=== PATIENT | female | born 1960 | race American Indian/Alaskan Native ===

== ENCOUNTER 2019-11-10 10:17 | Emergency (ER) | payer OTHER ==
[2019-11-10 10:38] VITALS: BP 132/87
--- NOTE | 2019-11-10 15:17 | Emergency Department Report ---
ED General Adult HPI - General Chief complaint: Abdominal Pain Stated complaint: FLU LIKE SYM/BODY ACHES Time Seen by Provider: 11/10/19 14:04 Source: patient Mode of arrival: Ambulatory Limitations: No Limitations - History of Present Illness Initial comments: This is a 59-year-old -Spanish female who presents to the emergency room with sore throat, myalgia, fever, chills for 2 days. She states she is using Vidhi-Bamberg plus with minimal improvement of symptoms. Patient states symptoms initially started on New Year's Saige and progressed over the past 2 days. Onset/Timin -: days(s) Quality: aching Consistency: intermittent Improves with: none Worsens with: none Associated Symptoms: cough, fever/chills, headaches. denies: confusion, chest pain, diaphoresis, loss of appetite, malaise, nausea/vomiting, rash, seizure, shortness of breath, syncope, weakness Treatments Prior to Arrival: NSAID - Related Data Previous Rx's Medication Instructions Recorded Last Taken Type Benzocaine/Menthol [Cepacol Sore 1 each MM Q2H PRN #20 lozenge 11/10/19 Unknown Rx Throat Lozenge] methylPREDNISolone [Medrol 4MG 4 mg PO DAILY #1 tab.ds.pk 11/10/19 Unknown Rx DOSEPAK (21 tabs)] ED Review of Systems ROS: Stated complaint: FLU LIKE SYM/BODY ACHES Other details as noted in HPI Constitutional: chills, fever ENT: throat pain, congestion. denies: ear pain Respiratory: cough. denies: shortness of breath, wheezing Cardiovascular: denies: chest pain, palpitations Gastrointestinal: denies: abdominal pain, nausea, diarrhea Musculoskeletal: denies: back pain, joint swelling, arthralgia Skin: denies: rash, lesions Neurological: denies: headache, weakness, paresthesias Psychiatric: denies: anxiety, depression ED Past Medical Hx - Medications Home Medications: Home Medications Medication Instructions Recorded Confirmed Last Taken Type Benzocaine/Menthol [Cepacol Sore 1 each MM Q2H PRN #20 lozenge 11/10/19 Unknown Rx Throat Lozenge] methylPREDNISolone [Medrol 4MG 4 mg PO DAILY #1 tab.ds.pk 11/10/19 Unknown Rx DOSEPAK (21 tabs)] ED Physical Exam - General Limitations: No Limitations General appearance: alert, in no apparent distress - ENT ENT exam: Present: mucous membranes moist, TM's normal bilaterally, normal external ear exam, other (turbinates congested with clear discharge). Absent: normal orophraynx (erythematous posterior pharynx, uvula midline no exudate) - Respiratory Respiratory exam: Present: normal lung sounds bilaterally. Absent: respiratory distress - Cardiovascular Cardiovascular Exam: Present: regular rate, normal rhythm. Absent: systolic murmur, diastolic murmur, rubs, gallop - GI/Abdominal GI/Abdominal exam: Present: soft, normal bowel sounds. Absent: distended, tenderness, guarding, rebound, rigid - Neurological Exam Neurological exam: Present: alert, oriented X3 - Psychiatric Psychiatric exam: Present: normal affect, normal mood - Skin Skin exam: Present: warm, dry, intact, normal color. Absent: rash ED Course Vital Signs 11/10/19 10:35 Temperature 98.3 F Pulse Rate 78 Respiratory 18 Rate Blood Pressure 132/87 O2 Sat by Pulse 99 Oximetry ED Medical Decision Making - Medical Decision Making Patient examined by me and stable. No distress noted. Denies shortness of breath, cough, weakness, nausea, vomiting, or diarrhea. Centor score for strep 1 point. At this time labs or radiograph imaging is not indicated. Patient will be treated for acute viral pharyngitis. Patient reports history of constipation and followed by Dharmesh PACK. States symptoms are what she usually have and resolved while here after taking prescribed medication. Start medrol dosepak and Cepacol. Discharged home stable. Follow up with Primary Care Provider edilson Barroso in 2-3 days. Critical care attestation.: If time is entered above; I have spent that time in minutes in the direct care of this critically ill patient, excluding procedure time. ED Disposition Clinical Impression: Sore throat (viral), Acute viral pharyngitis Disposition: - TO HOME OR SELFCARE Is pt being admited?: No Condition: Stable Instructions: Pharyngitis (ED) Additional Instructions: Expect symptoms to improve within 3 or 4 days. There is no need for bed rest or isolation. Use Tylenol or ibuprofen for symptoms of sore throat, headache, and fever. Follow up with Primary Care Provider in 48-72 hours. Prescriptions: Benzocaine/Menthol [Cepacol Sore Throat Lozenge] 1 each MM Q2H PRN #20 lozenge PRN Reason: Sore Throat methylPREDNISolone [Medrol 4MG DOSEPAK (21 tabs)] 4 mg PO DAILY #1 tab.ds.pk Referrals: [facility] [Other] - 3-5 Days Time of Disposition: 16:17
== END 2019-11-10 16:32 | disposition left against medical advice (07) ==
LOC: ED 10:17
DX: J02.8 Acute pharyngitis due to other specified organisms (principal); B97.89 Other viral agents as the cause of diseases classified elsewhere
CPT/HCPCS: 99281

== ENCOUNTER 2020-09-15 13:32 | Observation (INO) | payer OTHER ==
--- NOTE | 2020-09-15 13:53 | Event Note ---
ED Screening Note Date of service: 09/15/20 Time: 13:53 ED Screening Note: She complains of constipation x2 weeks Denies history of abdominal surgeries States vomiting for 1 week Admits to coffee-ground emesis Recently placed on antibiotics for UTI per patient This initial assessment/diagnostic orders/clinical plan/treatment(s) is/are subject to change based on patients health status, clinical progression and re- assessment by fellow clinical providers in the ED. Further treatment and workup at subsequent clinical providers discretion. Patient/guardian urged not to elope from the ED as their condition may be serious if not clinically assessed and managed. Initial orders include: Labs X-ray abdomen
--- NOTE | 2020-09-15 14:32 | XRay Report ---
ABDOMEN 2 VIEW(S) INDICATION / CLINICAL INFORMATION: Constipation. COMPARISON: None available. FINDINGS: TUBES / LINES: None. BOWEL GAS PATTERN/EXTRALUMINAL GAS: No significant abnormality. No pneumatosis or secondary signs of free air. ADDITIONAL FINDINGS: Moderate chronic osteitis pubis noted. IMPRESSION: 1. No significant abnormality. Signer Name: Francisco Chavez MD Signed: 09/15/2020 2:28 PM Workstation Name: [id number]
[2020-09-15 15:20] LABS: INR 0.95 (0.87-1.13)
[2020-09-15 15:21] LABS: Partial Thromboplastin Time 27.5 Sec. (24.2-36.6)
[2020-09-15 15:23] LABS: Hematocrit 41.7 % (30.3-42.9); Hemoglobin 13.7 gm/dl (10.1-14.3); Mean Corpuscular HGB Conc 33 % (30-34); Mean Corpuscular Volume 97 fl (79-97); Platelet Count 162 K/mm3 (140-440); Red Cell Distribution Width 13.5 % (13.2-15.2)
[2020-09-15 15:28] LABS: Alanine Aminotransferase 22 units/L (7-56); Albumin 4.5 g/dL (3.9-5); BUN/Creatinine Ratio 14; Blood Urea Nitrogen 11 mg/dL (7-17); Calcium 9.1 mg/dL (8.4-10.2); Hemolysis Index 9
[2020-09-15] MEDS ORDERED: ONDANSETRON 4 MG/2 ML INJ IV ONE (22:57)
--- NOTE | 2020-09-15 22:58 | Cat Scan Report ---
CT ABDOMEN AND PELVIS WITHOUT CONTRAST INDICATION / CLINICAL INFORMATION: abdominal pain/constipation/. TECHNIQUE: Axial CT images were obtained through the abdomen and pelvis without IV contrast. All CT scans at [facility] location are performed using CT dose reduction for ALARA by means of automated exposure control. COMPARISON: 05/17/2020 CT abdomen pelvis FINDINGS: LOWER CHEST: No significant abnormality. HEPATOBILIARY: No significant abnormality. PANCREAS: No significant abnormality. SPLEEN: No significant abnormality. ADRENALS: No significant abnormality. GENITOURINARY: No significant abnormality. GASTROINTESTINAL/MESENTERY: Tiny hiatal hernia. Small caliber tubular structure courses posterior fro m the cecum and possibly represents the appendix. This finding appears larger when compared to examin ation 05/17/2020 and there is minimal fat stranding with normal-sized lymph nodes in the right lower q uadrant. No definite bowel obstruction or inflammation. No free air or significant free fluid. RETROPERITONEUM: No significant adenopathy. REPRODUCTIVE ORGANS: No significant abnormality. VASCULAR: No significant abnormality. SKELETAL SYSTEM: No significant abnormality. ADDITIONAL FINDINGS: No significant abnormality. IMPRESSION: 1. Tubular structure in the right lower quadrant which may represent the appendix. Finding appears sl ightly larger and more dilated when compared to 05/17/2020 examination. Additionally, there is minimal fat haziness and few upper limits normal size lymph nodes in the right lower quadrant. Findings can be seen in setting of early uncomplicated acute appendicitis. Recommend clinical correlation. Signer Name: Chava Summers MD Signed: 09/15/2020 10:54 PM Workstation Name: [id number]
--- NOTE | 2020-09-15 23:22 | Emergency Department Report ---
ED General Adult HPI - General Chief complaint: Abdominal Pain Stated complaint: VOMITING/HARD STOOL Time Seen by Provider: 09/15/20 13:52 Source: patient Mode of arrival: Ambulatory Limitations: No Limitations - History of Present Illness Initial comments: Patient presents to emergency department the chief complaint of constipation x1 week. Patient states she took castor oil this morning and while in the ED she had a bowel movement. Patient has a history of IBS. Patient states she has had difficulty with her bowel since 2014 if she wants the issue resolved tonight. Patient denies any chest pain, shortness breath, headache. Patient complains of right lower quadrant abdominal pain. -: Gradual, year(s) Location: abdomen Severity scale (0 -10): 4 Quality: aching Consistency: constant Improves with: none Worsens with: none Associated Symptoms: denies other symptoms Treatments Prior to Arrival: none - Related Data Previous Rx's Medication Instructions Recorded Last Taken Type Benzocaine/Menthol [Cepacol Sore 1 each MM Q2H PRN #20 lozenge 11/10/19 Unknown Rx Throat Lozenge] methylPREDNISolone [Medrol 4MG 4 mg PO DAILY #1 tab.ds.pk 11/10/19 Unknown Rx DOSEPAK (21 tabs)] Azithromycin [Zithromax Z-JUAN] 0 mg PO DAILY #1 package 05/17/20 Unknown Rx Promethazine [Phenergan] 25 mg PO Q6HR PRN #21 tab 05/17/20 Unknown Rx Allergies Allergy/AdvReac Type Severity Reaction Status Date / Time ibuprofen [From Motrin] Allergy Unknown Verified 05/17/20 09:24 Penicillins Allergy Unknown Verified 05/17/20 09:24 ED Review of Systems ROS: Stated complaint: VOMITING/HARD STOOL Other details as noted in HPI Constitutional: denies: chills, fever Eyes: denies: eye pain, eye discharge, vision change ENT: denies: ear pain, throat pain Respiratory: denies: cough, shortness of breath, wheezing Cardiovascular: denies: chest pain, palpitations Endocrine: no symptoms reported Gastrointestinal: abdominal pain, constipation. denies: nausea, diarrhea Genitourinary: denies: urgency, dysuria, discharge Musculoskeletal: denies: back pain, joint swelling, arthralgia Skin: denies: rash, lesions Neurological: denies: headache, weakness, paresthesias Psychiatric: denies: anxiety, depression Hematological/Lymphatic: denies: easy bleeding, easy bruising ED Past Medical Hx - Past Medical History Previous Medical History?: Yes Hx GERD: Yes Additional medical history: chronic constipation - Surgical History Past Surgical History?: Yes - Social History Smoking Status: Never Smoker - Medications Home Medications: Home Medications Medication Instructions Recorded Confirmed Last Taken Type Benzocaine/Menthol [Cepacol Sore 1 each MM Q2H PRN #20 lozenge 11/10/19 Unknown Rx Throat Lozenge] methylPREDNISolone [Medrol 4MG 4 mg PO DAILY #1 tab.ds.pk 11/10/19 Unknown Rx DOSEPAK (21 tabs)] Azithromycin [Zithromax Z-JUAN] 0 mg PO DAILY #1 package 05/17/20 Unknown Rx Promethazine [Phenergan] 25 mg PO Q6HR PRN #21 tab 05/17/20 Unknown Rx ED Physical Exam - General Limitations: No Limitations General appearance: alert, in no apparent distress - Head Head exam: Present: atraumatic, normocephalic - Eye Eye exam: Present: normal appearance, PERRL, EOMI - ENT ENT exam: Present: mucous membranes moist - Neck Neck exam: Present: normal inspection - Respiratory Respiratory exam: Present: normal lung sounds bilaterally. Absent: respiratory distress - Cardiovascular Cardiovascular Exam: Present: regular rate, normal rhythm. Absent: systolic murmur, diastolic murmur, rubs, gallop - GI/Abdominal GI/Abdominal exam: Present: soft, tenderness (Patient is tenderness palpation right and left lower quadrant), normal bowel sounds. Absent: distended - Extremities Exam Extremities exam: Present: normal inspection - Back Exam Back exam: Present: normal inspection - Neurological Exam Neurological exam: Present: alert, oriented X3, CN II-XII intact. Absent: motor sensory deficit - Psychiatric Psychiatric exam: Present: normal affect, normal mood - Skin Skin exam: Present: warm, dry, intact, normal color. Absent: rash ED Course Vital Signs 09/15/20 13:50 Temperature 97.9 F Pulse Rate 88 Respiratory 18 Rate Blood Pressure 138/87 [Right] O2 Sat by Pulse 97 Oximetry ED Medical Decision Making - Lab Data Result diagrams: 09/15/20 14:44 09/15/20 14:44 Lab Results 11/12/20 11/12/20 11/12/20 Range/Units 14:44 14:44 14:44 WBC 7.7 (4.5-11.0) K/mm3 RBC 4.30 (3.65-5.03) M/mm3 Hgb 13.7 (10.1-14.3) gm/dl Hct 41.7 (30.3-42.9) % MCV 97 (79-97) fl MCH 32 (28-32) pg MCHC 33 (30-34) % RDW 13.5 (13.2-15.2) % Plt Count 162 (140-440) K/mm3 Lymph % (Auto) [employer] [place] Morgan % (Auto) [employer] Eos % (Auto) [employer] Baso % (Auto) [employer] Lymph # (Auto) [employer] [place] Morgan # (Auto) [employer] Eos # (Auto) [employer] Baso # (Auto) [employer] Seg Neutrophils % [employer] Seg Neutrophils # [employer] PT 12.9 (12.2-14.9) Sec. INR 0.95 (0.87-1.13) APTT 27.5 (24.2-36.6) Sec. Sodium 138 (137-145) mmol/L Potassium 3.8 (3.6-5.0) mmol/L Chloride 103.3 (98-107) mmol/L Carbon Dioxide 23 (22-30) mmol/L Anion Gap 16 mmol/L BUN 11 (7-17) mg/dL Creatinine 0.8 (0.6-1.2) mg/dL Estimated GFR > 60 ml/min BUN/Creatinine Ratio 14 % Glucose 93 (65-100) mg/dL Calcium 9.1 (8.4-10.2) mg/dL Total Bilirubin 0.30 (0.1-1.2) mg/dL AST 19 (5-40) units/L ALT 22 (7-56) units/L Alkaline Phosphatase 59 (35-129) units/L Total Protein 7.6 (6.3-8.2) g/dL Albumin 4.5 (3.9-5) g/dL Albumin/Globulin Ratio 1.5 % - Radiology Data Radiology results: report reviewed - Medical Decision Making Discussed results with Dr. Bearden who agreed to see the patient on consult Discussed results with patient IV Flagyl and Levaquin were given instead of Zosyn due to the patient's allergy to penicillin which is hives and swelling of the airway Critical care attestation.: If time is entered above; I have spent that time in minutes in the direct care of this critically ill patient, excluding procedure time. ED Disposition Clinical Impression: Appendicitis Disposition: DC-[id number] OP ADMIT IP TO THIS HOSP Is pt being admited?: Yes Does the pt Need Aspirin: No Condition: Fair Instructions: Abdominal Pain (ED) Referrals: [facility] MD PRANAV [Primary Care Provider] - 3-5 Days
[2020-09-15] MEDS ORDERED: metroNIDAZOLE/NS 500 MG/100 ML 500 MG/100 ML BAG IV ONE (23:41)
[2020-09-16] MEDS: MORPHINE 4 MG/1 ML INJ IV ONE ×2 (00:24→00:43)
[2020-09-16] MEDS ORDERED: ONDANSETRON 4 MG/2 ML INJ IV PRN (00:48)
[2020-09-16] MEDS ORDERED: ACETAMINOPHEN 325 MG TAB PO PRN (00:48)
[2020-09-16 00:53] LABS: Bilirubin,Urine NEG (Negative); Blood,Urine NEG (Negative); Color,Urine Yellow (Yellow); Mucus,Urine FEW /HPF; Protein,Urine <15 mg/dL mg/dL (Negative); Urobilinogen,Urine < 2.0 mg/dL (<2.0)
--- NOTE | 2020-09-16 00:56 | History and Physical Report ---
History of Present Illness Date of examination: 09/16/20 Date of admission: 09/16/2020 Chief complaint: Abdominal pain Constipation History of present illness: 60 year old female with history of IBS seen in the ER complaining of constipation and abdominal pain. Abdominal pain is more in the lower abdomen. She denies hematuria or dysuria. No fever,no chills. No chest pain or shortness of breath. No diarrhea, no bright red blood per rectum. She indicates she has been having problems with constipation over the past few years. She has been constipated for the past few days and last taking castor oil for relief. She also indicates that she saw her primary care physician at [facility] few days ago and she was prescribed some antibiotics because she had complained of lower abdominal pain. Her primary care physician had suspected UTI even though urinalysis was not done. CT abdomen today shows findings concerning for appendicitis. General Surgeon - Dr. Cho was consulted by the ER physician. IV fluid and empiric antibiotics has been initiated. Past History Past Medical History: GERD, other (Chronic Constipation) Past Surgical History: No surgical history Social history: no significant social history Family history: no significant family history Medications and Allergies Allergies Allergy/AdvReac Type Severity Reaction Status Date / Time ibuprofen [From Motrin] Allergy Unknown Verified 05/17/20 09:24 Penicillins Allergy Unknown Verified 05/17/20 09:24 Home Medications Medication Instructions Recorded Confirmed Last Taken Type Benzocaine/Menthol [Cepacol Sore 1 each MM Q2H PRN #20 lozenge 11/10/19 Unknown Rx Throat Lozenge] methylPREDNISolone [Medrol 4MG 4 mg PO DAILY #1 tab.ds.pk 11/10/19 Unknown Rx DOSEPAK (21 tabs)] Azithromycin [Zithromax Z-JUAN] 0 mg PO DAILY #1 package 05/17/20 Unknown Rx Promethazine [Phenergan] 25 mg PO Q6HR PRN #21 tab 05/17/20 Unknown Rx Active Meds: Active Medications Acetaminophen (Tylenol) 650 mg PO Q4H PRN PRN Reason: Pain MILD(1-3)/Fever >100.5/CABRERA Levofloxacin/Dextrose (Levaquin 750mg/150ml) 750 mg in 150 mls @ 100 mls/hr IV ONCE ONE; Protocol Stop: 09/16/20 01:09 Last Admin: 09/16/20 00:24 Dose: 100 mls/hr Documented by: Sodium Chloride (Nacl 0.9% 1000 Ml) 1,000 mls @ 125 mls/hr IV DIRECT VIKAS Levofloxacin/Dextrose (Levaquin 750mg/150ml) 750 mg in 150 mls @ 100 mls/hr IV Q24HR VIKAS; Protocol Metronidazole (Flagyl 500 Mg/100 Ml) 500 mg in 100 mls @ 100 mls/hr IV Q8HR VIKAS; Protocol Magnesium Hydroxide (Milk Of Magnesia) 30 ml PO Q4H PRN PRN Reason: Constipation Morphine Sulfate (Morphine) 2 mg IV Q4H PRN PRN Reason: Pain, Moderate (4-6) Ondansetron HCl (Zofran) 4 mg IV Q8H PRN PRN Reason: Nausea And Vomiting Sodium Chloride (Sodium Chloride Flush Syringe 10 Ml) 10 ml IV BID VIKAS Sodium Chloride (Sodium Chloride Flush Syringe 10 Ml) 10 ml IV PRN PRN PRN Reason: LINE FLUSH Review of Systems Constitutional: no fever, no chills Ears, nose, mouth and throat: no nasal congestion, no sore throat Cardiovascular: no chest pain, no palpitations Respiratory: no cough, no shortness of breath Gastrointestinal: abdominal pain, no nausea, no vomiting, no diarrhea Genitourinary Female: no pelvic pain, no flank pain, no dysuria, no hematuria Musculoskeletal: no neck pain, no low back pain Integumentary: no rash, no pruritis Neurological: no headaches, no confusion Psychiatric: no anxiety, no depression Exam - Constitutional Vitals: Temp Pulse Resp BP Pulse Ox 97.9 F 88 18 138/87 97 09/15/20 13:50 09/15/20 13:50 09/15/20 13:50 09/15/20 13:50 09/15/20 13:50 General appearance: Present: no acute distress, well-nourished - EENT Eyes: Present: PERRL, EOM intact. Absent: scleral icterus ENT: hearing intact, clear oral mucosa, dentition normal - Neck Neck: Present: supple, normal ROM - Respiratory Respiratory effort: normal Respiratory: bilateral: CTA - Cardiovascular Rhythm: regular Heart Sounds: Present: S1 & S2. Absent: gallop, systolic murmur, diastolic murmur, rub - Extremities Extremities: no ischemia, pulses intact, pulses symmetrical, No edema, Full ROM Peripheral Pulses: within normal limits - Abdominal General gastrointestinal: Present: soft, tender (In lower quadrants), non- distended, normal bowel sounds - Integumentary Integumentary: Present: clear, warm, dry. Absent: rash - Musculoskeletal Musculoskeletal: strength equal bilaterally - Psychiatric Psychiatric: appropriate mood/affect, intact judgment & insight, memory intact, cooperative - Neurologic Neurologic: CNII-XII intact, no focal deficits, moves all extremities Results - Labs CBC & Chem 7: 09/15/20 14:44 09/15/20 14:44 Assessment and Plan - Patient Problems (1) Appendicitis Current Visit: Yes Status: Acute Plan to address problem: He has been placed on IV fluid and empiric IV antibiotics. General surgeon has been consulted for evaluation. (2) DVT prophylaxis Current Visit: Yes Status: Acute Plan to address problem: Patient placed on sequential compression device. (3) Full code status Current Visit: Yes Status: Acute
[2020-09-16] MEDS ORDERED: SODIUM CHLORIDE 0.9% 1000 ML 1,000 ML IV SCH (01:00)
--- NOTE | 2020-09-16 05:08 | Consultation ---
History of Present Illness Consult date: 09/16/20 Reason for consult: abdominal pain Chief complaint: abd pain - History of present illness History of present illness: this is a 60 year old female who presents with a one week hx of severe constipation complaining of increased abd pain, she has a hx of chronic constipation and IBS, she presented to the ER with a normal WBC, stable vitals, no fever, and a CT of the abd pelvis demonstrating question of enlarged appendix (no dimensions given), no mention of appendicolithe, minimal fat stranding, no mention of constipation, no obstruction. Past History Past Medical History: GERD, other (Chronic Constipation) Past Surgical History: No surgical history Social history: no significant social history Family history: no significant family history Medications and Allergies Allergies Allergy/AdvReac Type Severity Reaction Status Date / Time ibuprofen [From Motrin] Allergy Unknown Verified 05/17/20 09:24 Penicillins Allergy Unknown Verified 05/17/20 09:24 Home Medications Medication Instructions Recorded Confirmed Last Taken Type Benzocaine/Menthol [Cepacol Sore 1 each MM Q2H PRN #20 lozenge 11/10/19 Unknown Rx Throat Lozenge] methylPREDNISolone [Medrol 4MG 4 mg PO DAILY #1 tab.ds.pk 11/10/19 Unknown Rx DOSEPAK (21 tabs)] Azithromycin [Zithromax Z-JUAN] 0 mg PO DAILY #1 package 05/17/20 Unknown Rx Promethazine [Phenergan] 25 mg PO Q6HR PRN #21 tab 05/17/20 Unknown Rx Active Meds: Active Medications Acetaminophen (Tylenol) 650 mg PO Q4H PRN PRN Reason: Pain MILD(1-3)/Fever >100.5/CABRERA Sodium Chloride (Nacl 0.9% 1000 Ml) 1,000 mls @ 125 mls/hr IV DIRECT VIKAS Levofloxacin/Dextrose (Levaquin 750mg/150ml) 750 mg in 150 mls @ 100 mls/hr IV Q24HR VIKAS; Protocol Metronidazole (Flagyl 500 Mg/100 Ml) 500 mg in 100 mls @ 100 mls/hr IV Q8HR VIKAS; Protocol Magnesium Hydroxide (Milk Of Magnesia) 30 ml PO Q4H PRN PRN Reason: Constipation Morphine Sulfate (Morphine) 2 mg IV Q4H PRN PRN Reason: Pain, Moderate (4-6) Ondansetron HCl (Zofran) 4 mg IV Q8H PRN PRN Reason: Nausea And Vomiting Sodium Chloride (Sodium Chloride Flush Syringe 10 Ml) 10 ml IV BID VIKAS Sodium Chloride (Sodium Chloride Flush Syringe 10 Ml) 10 ml IV PRN PRN PRN Reason: LINE FLUSH Exam Vital Signs Temp Pulse Resp BP Pulse Ox 97.9 F 88 18 138/87 97 09/15/20 13:50 09/15/20 13:50 09/15/20 13:50 09/15/20 13:50 09/15/20 13:50 Results - Labs 09/15/20 14:44 09/15/20 14:44 Diabetes panel 09/15/20 Range/Units 14:44 Sodium 138 (137-145) mmol/L Potassium 3.8 (3.6-5.0) mmol/L Chloride 103.3 (98-107) mmol/L Carbon Dioxide 23 (22-30) mmol/L BUN 11 (7-17) mg/dL Creatinine 0.8 (0.6-1.2) mg/dL Glucose 93 (65-100) mg/dL Calcium 9.1 (8.4-10.2) mg/dL AST 19 (5-40) units/L ALT 22 (7-56) units/L Alkaline Phosphatase 59 (35-129) units/L Total Protein 7.6 (6.3-8.2) g/dL Albumin 4.5 (3.9-5) g/dL Calcium panel 09/15/20 Range/Units 14:44 Calcium 9.1 (8.4-10.2) mg/dL Albumin 4.5 (3.9-5) g/dL Pituitary panel 09/15/20 Range/Units 14:44 Sodium 138 (137-145) mmol/L Potassium 3.8 (3.6-5.0) mmol/L Chloride 103.3 (98-107) mmol/L Carbon Dioxide 23 (22-30) mmol/L BUN 11 (7-17) mg/dL Creatinine 0.8 (0.6-1.2) mg/dL Glucose 93 (65-100) mg/dL Calcium 9.1 (8.4-10.2) mg/dL Adrenal panel 09/15/20 Range/Units 14:44 Sodium 138 (137-145) mmol/L Potassium 3.8 (3.6-5.0) mmol/L Chloride 103.3 (98-107) mmol/L Carbon Dioxide 23 (22-30) mmol/L BUN 11 (7-17) mg/dL Creatinine 0.8 (0.6-1.2) mg/dL Glucose 93 (65-100) mg/dL Calcium 9.1 (8.4-10.2) mg/dL Total Bilirubin 0.30 (0.1-1.2) mg/dL AST 19 (5-40) units/L ALT 22 (7-56) units/L Alkaline Phosphatase 59 (35-129) units/L Total Protein 7.6 (6.3-8.2) g/dL Albumin 4.5 (3.9-5) g/dL Assessment and Plan Complicated case, hx of IBS and chronic constipation, question of dilation of appendix although no dimensions given on CT report, question mild RLQ stranding, no mention of constipation, agree with admiting patient, NPO, iv antibiotics, pain control , iv fluids, I will review CT abd and pelvis with Dr. Monteiro (RADS) in am and make decision regarding possible appendectomy.
[2020-09-16] MEDS: MORPHINE 2 MG/1 ML INJ IV PRN ×2 (06:03→23:34)
[2020-09-16] MEDS: metroNIDAZOLE/NS 500 MG/100 ML 500 MG/100 ML BAG IV SCH ×3 (06:03→21:35)
--- NOTE | 2020-09-16 08:09 | Anesthesia Consultation ---
Anesthesia Consult and Med Hx Date of service: 09/16/20 - Airway Anesthetic Teeth Evaluation: Poor ROM Head & Neck: Adequate Mental/Hyoid Distance: Adequate Mallampati Class: Class II Intubation Access Assessment: Good - Pulmonary Exam CTA: Yes - Cardiac Exam Cardiac Exam: RRR - Pre-Operative Health Status ASA Pre-Surgery Classification: ASA2 Proposed Anesthetic Plan: General - Gastrointestinal Hx Gastroesophageal Reflux Disease: Yes - Other Systems Hx Cancer: No
--- NOTE | 2020-09-16 08:09 | Anesthesia Day of Surgery ---
Anesthesia Day of Surgery - Day of Surgery Patient Examined: Yes Patient H&P Reviewed: Yes Patient is NPO: Yes
--- NOTE | 2020-09-16 08:56 | Event Note ---
Date: 09/16/20 CT abd pelvis reviewed with Dr. Monteiro (RADS), findings demonstrate 6-7mm appendix (normal), no appendicolith, no target sign, findings suggest mild cecal diverticulitis,(explains mild fat strading,), P exam supports this, I do not think patient has appendicitis/ cecal diverticulitis, will take off schedule for lap appendectomy, adv to clear liquid diet, adv as tolerated, transition to oral antibiotics (cipro/flagyll), some oral pain meds, and discharge at Hospitalist's discretion.
--- NOTE | 2020-09-16 09:50 | Event Note ---
Date: 09/16/[address] Ramírez/ Hospitalist, I explained that I think this patient has mild right sided diverticulosis and NOT appendicitis.
[2020-09-16] MEDS: PANTOPRAZOLE 40 MG TAB PO SCH (10:15)
--- NOTE | 2020-09-16 10:45 | Progress Note ---
Assessment and Plan Assessment and plan: -- Appendicitis Current Visit: Yes Status: Acute Plan to address problem: He has been placed on IV fluid and empiric IV antibiotics. General surgeon evaluated the patient feels that patient does not have Appendicitis, But findings consistent with cecal diverticulitis --Mild cecal diverticulitis ; Current Visit: Yes Status: Acute . Plan to address problem: Surgeon recommends clear liquids, IV Flagyl and IV Levaquin, as observation IV fluids and supportive care --History of neuropathy; Current Visit: Yes Status: Acute . Plan to address problem: Continue gabapentin --History of dyslipidemia; Current Visit: Yes Status: Acute . Plan to address problem: Continue statin --DVT prophylaxis Current Visit: Yes Status: Acute . Plan to address problem: Patient placed on sequential compression device. -- Full code status Current Visit: Yes Status: Acute We will closely monitor the patient and adjust the management as needed Follow surgery recommendations, if patient is stable and cleared by surgery may discharge home tomorrow Plan of care reviewed with the patient and her nurse Advanced care , spent 35 minutes Brief history; Patient was admitted with abdominal pain, CT abdomen possible acute appendicitis, surgery evaluated, did not feel patient has appendicitis However felt that patient has mild diverticulitis, started on clear liquids, recommend IV antibiotics and close observation, possible discharge 1 to 2 days if stable History Interval history: I have seen and examined the patient at the bedside Patient's chart and medications reviewed Patient complains of abdominal pain Surgery evaluated the patient, no evidence of acute appendicitis Surgeon feels patient has mild cecal diverticulitis Recommend IV antibiotics Levaquin and Flagyl Started on clear liquids Patient feels slightly better mild nausea Vital signs noted Hospitalist Physical - Constitutional Vitals: Temp Pulse Resp BP Pulse Ox 97.8 F 67 18 114/59 97 09/16/20 07:44 09/16/20 07:44 09/16/20 07:44 09/16/20 07:44 09/16/20 07:44 General appearance: Present: mild distress, well-nourished - EENT Eyes: Present: PERRL, EOM intact - Neck Neck: Present: supple, normal ROM - Respiratory Respiratory effort: normal Respiratory: bilateral: diminished, negative: rales, rhonchi, wheezing - Cardiovascular Rhythm: regular Heart Sounds: Present: S1 & S2 - Extremities Extremities: no ischemia, No edema - Abdominal General gastrointestinal: soft, tender (Vague tenderness no guarding no rigidity), non-distended, normal bowel sounds - Integumentary Integumentary: Present: clear, warm - Psychiatric Psychiatric: appropriate mood/affect, cooperative - Neurologic Neurologic: CNII-XII intact, moves all extremities Results - Labs CBC & Chem 7: 09/15/20 14:44 09/15/20 14:44 Labs: Laboratory Last Values WBC 7.7 K/mm3 (4.5-11.0) 09/15/20 14:44 RBC 4.30 M/mm3 (3.65-5.03) 09/15/20 14:44 Hgb 13.7 gm/dl (10.1-14.3) 09/15/20 14:44 Hct 41.7 % (30.3-42.9) 09/15/20 14:44 MCV 97 fl (79-97) 09/15/20 14:44 MCH 32 pg (28-32) 09/15/20 14:44 MCHC 33 % (30-34) 09/15/20 14:44 RDW 13.5 % (13.2-15.2) 09/15/20 14:44 Plt Count 162 K/mm3 (140-440) 09/15/20 14:44 Lymph % (Auto) Microbiological Laboratory Technician 09/15/20 14:44 [place] % (Auto) Microbiological Laboratory Technician 09/15/20 14:44 Eos % (Auto) Microbiological Laboratory Technician 09/15/20 14:44 Baso % (Auto) Microbiological Laboratory Technician 09/15/20 14:44 Lymph # (Auto) Microbiological Laboratory Technician 09/15/20 14:44 [place] # (Auto) Microbiological Laboratory Technician 09/15/20 14:44 Eos # (Auto) Microbiological Laboratory Technician 09/15/20 14:44 Baso # (Auto) Microbiological Laboratory Technician 09/15/20 14:44 Seg Neutrophils % Microbiological Laboratory Technician 09/15/20 14:44 Seg Neutrophils # Microbiological Laboratory Technician 09/15/20 14:44 PT 12.9 Sec. (12.2-14.9) 09/15/20 14:44 INR 0.95 (0.87-1.13) 09/15/20 14:44 APTT 27.5 Sec. (24.2-36.6) 09/15/20 14:44 Sodium 138 mmol/L (137-145) 09/15/20 14:44 Potassium 3.8 mmol/L (3.6-5.0) 09/15/20 14:44 Chloride 103.3 mmol/L (98-107) 09/15/20 14:44 Carbon Dioxide 23 mmol/L (22-30) 09/15/20 14:44 Anion Gap 16 mmol/L 09/15/20 14:44 BUN 11 mg/dL (7-17) 09/15/20 14:44 Creatinine 0.8 mg/dL (0.6-1.2) 09/15/20 14:44 Estimated GFR > 60 ml/min 09/15/20 14:44 BUN/Creatinine Ratio 14 % 09/15/20 14:44 Glucose 93 mg/dL (65-100) 09/15/20 14:44 Calcium 9.1 mg/dL (8.4-10.2) 09/15/20 14:44 Total Bilirubin 0.30 mg/dL (0.1-1.2) 09/15/20 14:44 AST 19 units/L (5-40) 09/15/20 14:44 ALT 22 units/L (7-56) 09/15/20 14:44 Alkaline Phosphatase 59 units/L (35-129) 09/15/20 14:44 Total Protein 7.6 g/dL (6.3-8.2) 09/15/20 14:44 Albumin 4.5 g/dL (3.9-5) 09/15/20 14:44 Albumin/Globulin Ratio 1.5 % 09/15/20 14:44 Urine Color Yellow (Yellow) 09/16/20 00:34 Urine Turbidity Clear (Clear) 09/16/20 00:34 Urine pH 5.0 (5.0-7.0) 09/16/20 00:34 Ur Specific [place] 1.025 (1.003-1.030) 09/16/20 00:34 Urine Protein <15 mg/dl mg/dL (Negative) 09/16/20 00:34 Urine Glucose (UA) Neg mg/dL (Negative) 09/16/20 00:34 Urine Ketones Neg mg/dL (Negative) 09/16/20 00:34 Urine Blood Neg (Negative) 09/16/20 00:34 Urine Nitrite Neg (Negative) 09/16/20 00:34 Urine Bilirubin Neg (Negative) 09/16/20 00:34 Urine Urobilinogen < 2.0 mg/dL (<2.0) 09/16/20 00:34 Ur Leukocyte Esterase Tr (Negative) 09/16/20 00:34 Urine WBC (Auto) 4.0 /HPF (0.0-6.0) 09/16/20 00:34 Urine RBC (Auto) 3.0 /HPF (0.0-6.0) 09/16/20 00:34 U Epithel Cells (Auto) 6.0 /HPF (0-13.0) 09/16/20 00:34 Urine Mucus Few /HPF 09/16/20 00:34 Espino/IV: Voiding Method Toilet IV Catheter Type [Right INT / Saline Lock Antecubital] Active Medications - Current Medications Current Medications: Generic Name Dose Route Start Last Admin Trade Name Freq PRN Reason Stop Dose Admin Acetaminophen 650 mg 09/16/20 00:48 Tylenol PO Q4H PRN Pain MILD(1-3)/Fever >100.5/CABRERA Atorvastatin Calcium 40 mg 09/16/20 22:00 Lipitor PO QHS VIKAS Gabapentin 300 mg 09/16/20 14:00 Gabapentin PO Q8HR VIKAS Sodium Chloride 1,000 mls @ 125 mls/hr 09/16/20 01:00 09/16/20 06:03 Nacl 0.9% 1000 Ml IV 125 mls/hr DIRECT VIKAS Administration Levofloxacin/Dextrose 750 mg in 150 mls @ 100 mls/hr 09/16/20 10:00 09/16/20 10:16 Levaquin 750mg/150ml IV 100 mls/hr Q24HR VIKAS Administration Protocol Metronidazole 500 mg in 100 mls @ 100 mls/hr 09/16/20 06:00 09/16/20 06:03 Flagyl 500 Mg/100 Ml IV 100 mls/hr Q8HR VIKAS Administration Protocol Magnesium Hydroxide 30 ml 09/16/20 00:48 Milk Of Magnesia PO Q4H PRN Constipation Morphine Sulfate 2 mg 09/16/20 00:48 09/16/20 06:03 Morphine IV 2 mg Q4H PRN Administration Pain, Moderate (4-6) Ondansetron HCl 4 mg 09/16/20 00:48 Zofran IV Q8H PRN Nausea And Vomiting Pantoprazole Sodium 40 mg 09/16/20 10:00 09/16/20 10:15 Protonix PO 40 mg QDAY VIKAS Administration Sodium Chloride 10 ml 09/16/20 10:00 09/16/20 10:16 Sodium Chloride Flush Syringe 10 Ml IV 10 ml BID VIKAS Administration Sodium Chloride 10 ml 09/16/20 00:48 Sodium Chloride Flush Syringe 10 Ml IV PRN PRN LINE FLUSH
--- NOTE | 2020-09-16 14:06 | Event Note ---
Date: 09/16/20 My previous note should have read this patient has mild right sided diverticulitis, not diverticulosis.
[2020-09-16] MEDS: GABAPENTIN 300 MG CAP PO SCH ×2 (15:07→21:34)
[2020-09-16] MEDS: MAGNESIUM HYDROXIDE (MOM) ORAL LIQD UDC PO PRN (23:40)
[2020-09-17] MEDS: GABAPENTIN 300 MG CAP PO SCH ×2 (05:04→14:11)
[2020-09-17] MEDS: metroNIDAZOLE/NS 500 MG/100 ML 500 MG/100 ML BAG IV SCH (05:05)
[2020-09-17 05:34] LABS: Basophils % (Auto) 0.4 % (0.0-1.8); Eosinophils # (Auto) 0.1 K/mm3 (0.0-0.4); Eosinophils % (Auto) 2.7 % (0.0-4.3); Hematocrit 34.5 % (30.3-42.9); Hemoglobin 11.6 gm/dl (10.1-14.3); Lymphocytes % (Auto) 39.4 % (13.4-35.0); Mean Corpuscular HGB Conc 34 % (30-34); Mean Corpuscular Volume 95 fl (79-97); Monocytes # (Auto) 0.5 K/mm3 (0.0-0.8); Monocytes % (Auto) 10.8 % (0.0-7.3); Platelet Count 149 K/mm3 (140-440); Red Blood Count 3.63 M/mm3 (3.65-5.03)
[2020-09-17 05:38] LABS: BUN/Creatinine Ratio 8; Blood Urea Nitrogen 6 mg/dL (7-17); Calcium 8.4 mg/dL (8.4-10.2); Hemolysis Index 4
[2020-09-17 05:42] LABS: INR 1.17 (0.87-1.13)
--- NOTE | 2020-09-17 07:28 | Event Note ---
Date: 09/17/20 Afebrile, VSS, WBC normal, OK to discharge patient home on oral antibiotics from my standpoint. I will sign off, patient may follow up in my office in one week or with primary care.
[2020-09-17] MEDS: MAGNESIUM HYDROXIDE (MOM) ORAL LIQD UDC PO PRN (07:46)
[2020-09-17] MEDS: PANTOPRAZOLE 40 MG TAB PO SCH (10:33)
[2020-09-17 13:11] VITALS: BP 117/60
--- NOTE | 2020-09-17 13:42 | Discharge Summary ---
Providers - Providers Date of Admission: 09/16/20 00:38 Date of discharge: 09/17/20 Attending physician: LISSETT RITCHIE 09/16/20 00:34 Consult to Physician [CONS] Routine Comment: Consulting Provider: BRANDO ROSS Physician Instructions: Reason For Exam: appendicitis Primary care physician: [facility] PRANAV ROSADO MD Hospitalization Condition: Fair Hospital course: Brief history; Patient was admitted with abdominal pain, CT abdomen possible acute appendicitis, surgery evaluated, did not feel patient has appendicitis However felt that patient has mild diverticulitis, started on clear liquids, recommend IV antibiotics and close observation, possible discharge 1 to 2 days if stable Assessment and Plan -- Appendicitis Current Visit: Yes Status: Acute Plan to address problem: Findings consistent with cecal diverticulitis --Mild cecal diverticulitis ; Current Visit: Yes Status: Acute . Plan to address problem: Patient has mild pain in the right lower quadrant Surgery in favor of cecal diverticulitis Surgery wants patient to be discharged on clear liquids and oral antibiotics Levaquin and Flagyl Patient to follow-up with surgery --History of neuropathy; Current Visit: Yes Status: Acute . Plan to address problem: Continue gabapentin --History of dyslipidemia; Current Visit: Yes Status: Acute . Plan to address problem: Continue statin --DVT prophylaxis Current Visit: Yes Status: Acute . Plan to address problem: Patient placed on sequential compression device. -- Full code status Current Visit: Yes Status: Acute Disposition: DC-01 TO HOME OR SELFCARE Time spent for discharge: 34 minutes - Discharge Diagnoses (1) Cecal diverticulitis Status: Acute Comment: Clear liquids Follow-up with Dr. Ross in 1 week Patient was discharged on oral Levaquin and Flagyl (2) Hyperlipidemia Status: Acute (3) DVT prophylaxis Status: Acute Core Measure Documentation - Palliative Care Palliative Care/ Comfort Measures: Not Applicable - Core Measures Any of the following diagnoses?: none Exam - Constitutional Vitals: Temp Pulse Resp BP Pulse Ox 98.1 F 72 18 117/60 97 09/17/20 07:22 09/17/20 07:22 09/17/20 07:22 09/17/20 07:22 09/17/20 07:22 General appearance: Present: no acute distress, well-nourished - EENT Eyes: Present: PERRL ENT: hearing intact, clear oral mucosa - Neck Neck: Present: supple, normal ROM - Respiratory Respiratory effort: normal Respiratory: bilateral: CTA - Cardiovascular Heart rate: 78 Rhythm: regular Heart Sounds: Present: S1 & S2. Absent: rub, click - Extremities Extremities: pulses symmetrical, No edema Peripheral Pulses: within normal limits - Abdominal General gastrointestinal: Present: soft, non-tender, non-distended, normal bowel sounds Localized gastrointestinal: tender: RLQ Female genitourinary: Present: normal - Integumentary Integumentary: Present: clear, warm, dry - Musculoskeletal Musculoskeletal: gait normal, strength equal bilaterally - Psychiatric Psychiatric: appropriate mood/affect, intact judgment & insight - Neurologic Neurologic: CNII-XII intact, moves all extremities - Allied Health Allied health notes reviewed: nursing, case management Plan Activity: no restrictions Diet: clear liquids [facility] Care Provider[facility] - 3-5 Days BRANDO ROSS MD [Staff Physician] - 7 Days
== END 2020-09-17 15:15 | disposition home or self-care (01) ==
LOC: ED 13:32 → 4A 09-16 00:38
PROVIDERS: ADMIT Internal Medicine Geriatric Medicine; ATTEND Internal Medicine
DX: K35.80 Unspecified acute appendicitis (principal); K21.9 Gastro-esophageal reflux disease without esophagitis; K59.00 Constipation, unspecified; K57.92 Diverticulitis of intestine, part unspecified, without perforation or abscess without bleeding; G62.9 Polyneuropathy, unspecified; E78.5 Hyperlipidemia, unspecified
CPT/HCPCS: 36415; 74019; 74176; 80048; 80053; 81001; 85025; 85610; 85730; 96365; 96366; 96368; 96375; 96376; 99285; A9270; G0378; J1956; J2270; J2405; J7030

== ENCOUNTER 2020-11-19 08:36 | Emergency (ER) | payer OTHER ==
--- NOTE | 2020-11-19 09:26 | Event Note ---
ED Screening Note Date of service: 11/19/20 Time: 09:22 ED Screening Note: This initial assessment/diagnostic orders/clinical plan/treatment(s) is/are subject to change based on patients health status, clinical progression and re- assessment by fellow clinical providers in the ED. Further treatment and workup at subsequent clinical providers discretion. Patient/guardian urged not to elope from the ED as their condition may be serious if not clinically assessed and managed. Initial orders include: 60-year-old female complaining of left arm pain x3 days with no past history of any falls or injury. She states that she woke up this morning with chest pain in the center of her chest radiating to the her left arm. She denies any weakness any nausea vomiting the pain is just constant. She has not taken any medication at home. She is in no acute distress respiration easy and unlabored lungs are clear. EKG has a sinus rhythm normal EKG with no ST elevation.
--- NOTE | 2020-11-19 09:48 | XRay Report ---
CHEST PA AND LATERAL VIEWS INDICATION: CHEST PAIN AND LEFT ARM PAIN. COMPARISON: 05/17/2020 FINDINGS: Support devices: None. Heart: Within normal limits. Lungs/Pleura: No acute pulmonary or pleural findings. IMPRESSION: 1. No acute findings. Signer Name: Mark Sifuentes MD Signed: 11/19/2020 9:44 AM Workstation Name: [id number]
[2020-11-19 10:50] LABS: Hematocrit 41.7 % (30.3-42.9); Hemoglobin 13.9 gm/dl (10.1-14.3); Mean Corpuscular HGB Conc 33 % (30-34); Mean Corpuscular Volume 95 fl (79-97); Platelet Count 167 K/mm3 (140-440); Red Cell Distribution Width 13.1 % (13.2-15.2)
[2020-11-19 11:13] LABS: Alanine Aminotransferase 44 units/L (7-56); Albumin 4.6 g/dL (3.9-5); Blood Urea Nitrogen 10 mg/dL (7-17); Calcium 9.5 mg/dL (8.4-10.2); Hemolysis Index 6
[2020-11-19 11:14] LABS: BUN/Creatinine Ratio 14
--- NOTE | 2020-11-19 11:30 | Emergency Department Report ---
ED Chest Pain HPI - General Chief Complaint: Chest Pain Stated Complaint: CHEST PAIN Time Seen by Provider: 11/19/20 11:11 Source: patient Mode of arrival: Ambulatory Limitations: No Limitations - History of Present Illness Initial Comments: This is a 60-year-old -Citizen Of [place] female who presents to the emergency department with complaint of left-sided chest pain and left arm pain that has been going on for the past 3 to 4 days. The pain worsens with any palpation or movement of the arm or torso. She has tried some Tylenol and gabapentin for her symptoms without any relief. She also called her PCP 3 days ago and was told to place a warm compress on the left arm. She denies any fever, shortness of breath, extremity swelling, skin color changes, nausea, vomiting, back pain or diaphoresis. She has a past medical history of GERD, chronic constipation, and does have a history of some type of left shoulder surgery that sounds consistent with an abscess or soft tissue infection. No recent travel or sick contacts at home. She denies any tobacco use or illicit drug use. - Related Data Home Medications Medication Instructions Recorded Confirmed Last Taken AtorvaSTATin [Lipitor] 40 mg PO QHS 09/16/20 09/16/20 Unknown Gabapentin [Neurontin] 300 mg PO Q8HR 09/16/20 09/16/20 Unknown Pantoprazole [Protonix] 40 mg PO QDAY 09/16/20 09/16/20 Unknown Previous Rx's Medication Instructions Recorded Last Taken Type levoFLOXacin [Levaquin] 750 mg PO QDAY #8 tablet 09/17/20 Unknown Rx metroNIDAZOLE [Flagyl] 500 mg PO Q8HR #21 tablet 09/17/20 Unknown Rx Cyclobenzaprine [Flexeril] 10 mg PO TID PRN #12 tablet 11/19/20 Unknown Rx Allergies Allergy/AdvReac Type Severity Reaction Status Date / Time ibuprofen [From Motrin] Allergy Unknown Verified 05/17/20 09:24 Penicillins Allergy Unknown Verified 05/17/20 09:24 Heart Score - HEART Score History: Slightly suspicious EKG: Normal Age: 45-65 Risk factors: No known risk factors Troponin: < normal limit HEART Score: 1 - Critical Actions Critical Actions: 0-3 pts:0.9-1.7%risk of adverse cardiac event.Candidate for discharge ED Review of Systems ROS: Stated complaint: CHEST PAIN Other details as noted in HPI Comment: All other systems reviewed and negative Constitutional: denies: chills, fever Eyes: denies: eye pain, vision change ENT: denies: ear pain, throat pain Respiratory: denies: cough, shortness of breath Cardiovascular: chest pain. denies: palpitations Gastrointestinal: denies: abdominal pain, vomiting Genitourinary: denies: dysuria, discharge Musculoskeletal: arthralgia, myalgia. denies: joint swelling Skin: denies: rash, lesions Neurological: denies: numbness, paresthesias ED Past Medical Hx - Past Medical History Previous Medical History?: Yes Hx GERD: Yes Additional medical history: chronic constipation - Surgical History Past Surgical History?: Yes Additional Surgical History: Left shoulder - Social History Smoking Status: Never Smoker Substance Use Type: None - Medications Home Medications: Home Medications Medication Instructions Recorded Confirmed Last Taken Type AtorvaSTATin [Lipitor] 40 mg PO QHS 09/16/20 09/16/20 Unknown History Gabapentin [Neurontin] 300 mg PO Q8HR 09/16/20 09/16/20 Unknown History Pantoprazole [Protonix] 40 mg PO QDAY 09/16/20 09/16/20 Unknown History levoFLOXacin [Levaquin] 750 mg PO QDAY #8 tablet 09/17/20 Unknown Rx metroNIDAZOLE [Flagyl] 500 mg PO Q8HR #21 tablet 09/17/20 Unknown Rx Cyclobenzaprine [Flexeril] 10 mg PO TID PRN #12 tablet 11/19/20 Unknown Rx ED Physical Exam - General Limitations: No Limitations - Other Other exam information: GENERAL: The patient is well-developed well-nourished. HENT: Normocephalic. Atraumatic. Patient has moist mucous membranes. EYES: Extraocular motions are intact. NECK: Supple. Trachea is midline. CHEST/LUNGS: Clear to auscultation. There is no respiratory distress noted. There is reproducible left-sided chest wall tenderness to palpation, but no crepitus or deformity. HEART/CARDIOVASCULAR: Regular. There is no tachycardia. There is no murmur. ABDOMEN: Abdomen is soft, nontender. Patient has normal bowel sounds. SKIN: Skin is warm and dry. NEURO: The patient is awake, alert, and oriented. The patient is cooperative. The patient has no focal neurologic deficits. Normal speech. MUSCULOSKELETAL: There is reproducible tenderness to palpation to the left shoulder but no obvious deformity. Radial pulse +2/4 and capillary refill less than 2 seconds to the affected left upper extremity. The patient also has increased left upper extremity pain with passive or active movement. There is no limitation range of motion. ED Course Vital Signs 11/19/20 11/19/20 08:47 12:03 Temperature 97.9 F Pulse Rate 80 74 Respiratory 20 16 Rate Blood Pressure 140/90 Blood Pressure 134/64 [Right] O2 Sat by Pulse 98 96 Oximetry LEE score - Lee Score Age > 65: (0) No Aspirin use within the Past 7 Days: (0) No 3 or more CAD Risk Factors: (0) No 2 or more Angina events in past 24 hrs: (1) Yes (If pain is considered angina, more likely musculoskeletal) Known CAD with more than 50% Stenosis: (0) No Elevated Cardiac Markers: (0) No ST Deviation Greater than 0.5mm: (0) No LEE Score: 1 ED Medical Decision Making - Lab Data Result diagrams: 11/19/20 10:02 11/19/20 10:02 Lab Results 11/19/20 11/19/20 11/19/20 Range/Units 10:02 10:02 10:02 WBC 5.0 (4.5-11.0) K/mm3 RBC 4.40 (3.65-5.03) M/mm3 Hgb 13.9 (10.1-14.3) gm/dl Hct 41.7 (30.3-42.9) % MCV 95 (79-97) fl MCH 32 (28-32) pg MCHC 33 (30-34) % RDW 13.1 L (13.2-15.2) % Plt Count 167 (140-440) K/mm3 Sodium 141 (137-145) mmol/L Potassium 4.0 (3.6-5.0) mmol/L Chloride 102.0 (98-107) mmol/L Carbon Dioxide 30 (22-30) mmol/L Anion Gap 13 mmol/L BUN 10 (7-17) mg/dL Creatinine 0.7 (0.6-1.2) mg/dL Estimated GFR > 60 ml/min BUN/Creatinine Ratio 14 % Glucose 98 (65-100) mg/dL Calcium 9.5 (8.4-10.2) mg/dL Total Bilirubin 0.20 (0.1-1.2) mg/dL AST 34 (5-40) units/L ALT 44 (7-56) units/L Alkaline Phosphatase 90 (35-129) units/L Troponin T < 0.010 (0.00-0.029) ng/mL Total Protein 7.3 (6.3-8.2) g/dL Albumin 4.6 (3.9-5) g/dL Albumin/Globulin Ratio 1.7 % TSH (0.270-4.200) mlU/mL 11/19/20 11/19/20 Range/Units 11:35 11:35 WBC (4.5-11.0) K/mm3 RBC (3.65-5.03) M/mm3 Hgb (10.1-14.3) gm/dl Hct (30.3-42.9) % MCV (79-97) fl MCH (28-32) pg MCHC (30-34) % RDW (13.2-15.2) % Plt Count (140-440) K/mm3 Sodium (137-145) mmol/L Potassium (3.6-5.0) mmol/L Chloride (98-107) mmol/L Carbon Dioxide (22-30) mmol/L Anion Gap mmol/L BUN (7-17) mg/dL Creatinine (0.6-1.2) mg/dL Estimated GFR ml/min BUN/Creatinine Ratio % Glucose (65-100) mg/dL Calcium (8.4-10.2) mg/dL Total Bilirubin (0.1-1.2) mg/dL AST (5-40) units/L ALT (7-56) units/L Alkaline Phosphatase (35-129) units/L Troponin T < 0.010 (0.00-0.029) ng/mL Total Protein (6.3-8.2) g/dL Albumin (3.9-5) g/dL Albumin/Globulin Ratio % TSH 0.955 (0.270-4.200) mlU/mL - EKG Data -: EKG Interpreted by Ct EKG shows normal: sinus rhythm, axis, intervals, QRS complexes (Q waves to the septal leads), ST-T waves Rate: normal - EKG Data When compared to previous EKG there are: no significant change Interpretation: unchanged when compared t (05/17/20) - Radiology Data Radiology results: image reviewed interpreted by me: Chest x-ray does not show any acute process. There are no pleural effusions, obvious pneumonia and there is no pneumothorax. No significant cardiomegaly. - Medical Decision Making This patient presents to the emergency department with a complaint of left-sided chest pain with some radiation down the left arm that has been going on for the past 3 to 4 days. Heart and lung sounds are normal to auscultation. The patient has reproducible chest wall tenderness to palpation, but no crepitus or deformity. The patient was seen to have pain in the chest and the left arm just by taking off her jacket. EKG does not have any morphology consistent with ST elevation myocardial infarction or any dysrhythmia. Chest x-ray does not show any pneumonia, pleural effusions, pneumothorax, focal consolidation, or any other acute process. Labs have been unremarkable including CBC, metabolic panel, TSH level, and negative troponins x2. Her vital signs have been reassuring throughout her ED course including being afebrile. For all these reasons the patient appears safe for discharge home at this time. Her contact information has been sent over to the [facility], and someone from their office should be contacting her shortly for close outpatient follow-up as per our hospitals low risk chest pain protocol. Critical Care Time: No Critical care attestation.: If time is entered above; I have spent that time in minutes in the direct care of this critically ill patient, excluding procedure time. ED Disposition Clinical Impression: Atypical chest pain, Left arm pain Disposition: DC- TO HOME OR SELFCARE Is pt being admited?: No Condition: Stable Instructions: Nonspecific Chest Pain, Adult, Chest Wall Pain, Chest Pain (ED) Additional Instructions: Please follow-up with a primary care physician in the next few days. I am sending your contact information over to the [facility], and someone from their office should be contacting you shortly for close outpatient follow-up. Just in case, I am giving you a referral for one of their cardiologists, Dr. Allan. You have been prescribed a medication that is sedating and therefore should not be taken prior to driving, working, and responsible for children and in no way should be mixed with alcohol of any quantity. Return to the emergency department with any worsening of your symptoms, new or concerning symptoms not addressed during this current emergency department visit, or with any acute distress. Prescriptions: Cyclobenzaprine [Flexeril] 10 mg PO TID PRN #12 tablet PRN Reason: Muscle Spasm Referrals: EDILBERTO GRAY [Other] - 2-3 Days DAVE ALLAN MD [Staff Physician] - 2-3 Days Time of Disposition: 12:37
[2020-11-19 12:05] VITALS: BP 134/64
== END 2020-11-19 12:46 | disposition home or self-care (01) ==
LOC: ED 08:36
DX: R07.89 Other chest pain (principal); M79.602 Pain in left arm; K21.9 Gastro-esophageal reflux disease without esophagitis; Z98.890 Other specified postprocedural states; Z79.2 Long term (current) use of antibiotics; Z79.899 Other long term (current) drug therapy; Z88.0 Allergy status to penicillin; Z88.8 Allergy status to other drugs, medicaments and biological substances
CPT/HCPCS: 36415; 71046; 80053; 84443; 84484; 85027; 93005

== ENCOUNTER 2021-06-27 05:28 | Emergency (ER) | payer OTHER ==
[2021-06-27 06:25] LABS: Basophils % (Auto) 0.6 % (0.0-1.8); Eosinophils # (Auto) 0.2 K/mm3 (0.0-0.4); Eosinophils % (Auto) 3.3 % (0.0-4.3); Hematocrit 40.9 % (30.3-42.9); Hemoglobin 13.8 gm/dl (10.1-14.3); Lymphocytes # (Auto) 2.7 K/mm3 (1.2-5.4); Lymphocytes % (Auto) 44.2 % (13.4-35.0); Mean Corpuscular HGB Conc 34 % (30-34); Mean Corpuscular Volume 93 fl (79-97); Monocytes # (Auto) 0.5 K/mm3 (0.0-0.8); Monocytes % (Auto) 8.8 % (0.0-7.3); Platelet Count 183 K/mm3 (140-440); Red Blood Count 4.38 M/mm3 (3.65-5.03); Red Cell Distribution Width 13.4 % (13.2-15.2)
[2021-06-27 06:52] LABS: Bilirubin,Urine NEG (Negative); Blood,Urine SM (Negative); Color,Urine Yellow (Yellow); Mucus,Urine FEW /HPF; Protein,Urine <15 mg/dL mg/dL (Negative); Urobilinogen,Urine < 2.0 mg/dL (<2.0)
[2021-06-27 07:37] LABS: Alanine Aminotransferase 27 units/L (7-56); Albumin 4.8 g/dL (3.9-5); BUN/Creatinine Ratio 16; Blood Urea Nitrogen 13 mg/dL (7-17); Calcium 9.3 mg/dL (8.4-10.2); Hemolysis Index 0
== END 2021-06-27 07:52 ==
LOC: ED 05:28
DX: R10.9 Unspecified abdominal pain (principal); Z53.21 Procedure and treatment not carried out due to patient leaving prior to being seen by health care provider
CPT/HCPCS: 36415; 80053; 81001; 85025

== ENCOUNTER 2021-08-17 19:28 | Emergency (ER) | payer OTHER ==
[2021-08-17] MEDS ORDERED: ASPIRIN 325 MG TAB PO ONE (19:39)
[2021-08-17] MEDS ORDERED: ONDANSETRON 4 MG/2 ML INJ IV ONE (19:58)
[2021-08-17] MEDS ORDERED: FAMOTIDINE 20 MG/2 ML INJ IV ONE (19:58)
--- NOTE | 2021-08-17 20:06 | Emergency Department Report ---
ED Chest Pain HPI - General Chief Complaint: Chest Pain Stated Complaint: CHEST PAINS Time Seen by Provider: 08/17/21 19:44 Source: patient Mode of arrival: Ambulatory Limitations: No Limitations - History of Present Illness Initial Comments: 61-year-old female the past medical history elevated cholesterol and chronic left shoulder/upper chest pain presents to the hospital complaining of worsening chest pain with associated symptoms since yesterday. Patient was here in November for left-sided upper chest pain left upper arm pain. She states she is being managed by her primary care doctor who referred to a physician who performed an injection in her neck in March with very temporary relief in pain. Pt stopped working at that time due to pain. She was supposed to receive a second injection but did not follow-up because she was not optimistic that it will permanently help with the pain. Patient continues to have this chronic pain but since yesterday she developed pain on the mid lateral chest that radiates to the anterior chest that described as a "pins" type of pain. Patient's left arm pain is worse with movement. Patient has had intermittent nausea and vomiting since yesterday with poor p.o. tolerance. She is having intermittent diaphoresis and shortness of breath when the pain is intense. Patient is currently on gabapentin, Voltaren, and Protonix in addition to other meds she has no previous history of PE/DVT calf tenderness, leg edema, or recent travel. She he denies smoking. Positive family history of CAD patient reports a negative stress test 1 year ago and she does not take aspirin daily. Severity scale (0 -10): 8 - Related Data Home Medications Medication Instructions Recorded Confirmed Last Taken AtorvaSTATin [Lipitor] 40 mg PO QHS 09/16/20 09/16/20 Unknown Gabapentin [Neurontin] 300 mg PO Q8HR 09/16/20 09/16/20 Unknown Pantoprazole [Protonix] 40 mg PO QDAY 09/16/20 09/16/20 Unknown Previous Rx's Medication Instructions Recorded Last Taken Type levoFLOXacin [Levaquin] 750 mg PO QDAY #8 tablet 09/17/20 Unknown Rx metroNIDAZOLE [Flagyl] 500 mg PO Q8HR #21 tablet 09/17/20 Unknown Rx Cyclobenzaprine [Flexeril] 10 mg PO TID PRN #12 tablet 11/19/20 Unknown Rx traMADoL [Ultram 50 MG tab] 50 mg PO Q6HR PRN #15 tablet 08/18/21 Unknown Rx Allergies Allergy/AdvReac Type Severity Reaction Status Date / Time ibuprofen [From Motrin] Allergy Unknown Verified 08/17/21 19:38 Penicillins Allergy Unknown Verified 08/17/21 19:38 Heart Score - HEART Score History: Slightly suspicious EKG: Normal Age: 45-65 Risk factors: 1-2 risk factors Troponin: < normal limit HEART Score: 2 - EKG Read Time Time EKG Completed: 19:29 EKG Read Time: 19:31 ED Review of Systems ROS: Stated complaint: CHEST PAINS Other details as noted in HPI ED Past Medical Hx - Past Medical History Previous Medical History?: Yes Hx GERD: Yes Additional medical history: chronic constipation, high cholesterol - Surgical History Additional Surgical History: Left shoulder - Social History Smoking Status: Never Smoker Substance Use Type: None - Medications Home Medications: Home Medications Medication Instructions Recorded Confirmed Last Taken Type AtorvaSTATin [Lipitor] 40 mg PO QHS 09/16/20 09/16/20 Unknown History Gabapentin [Neurontin] 300 mg PO Q8HR 09/16/20 09/16/20 Unknown History Pantoprazole [Protonix] 40 mg PO QDAY 09/16/20 09/16/20 Unknown History levoFLOXacin [Levaquin] 750 mg PO QDAY #8 tablet 09/17/20 Unknown Rx metroNIDAZOLE [Flagyl] 500 mg PO Q8HR #21 tablet 09/17/20 Unknown Rx Cyclobenzaprine [Flexeril] 10 mg PO TID PRN #12 tablet 11/19/20 Unknown Rx traMADoL [Ultram 50 MG tab] 50 mg PO Q6HR PRN #15 tablet 08/18/21 Unknown Rx ED Physical Exam - General Limitations: No Limitations - Other Other exam information: General: No acute distress Head: Atraumatic Eyes: normal appearance ENT: Moist mucous membranes Neck: Normal appearance, no midline tenderness Chest: Clear to auscultation bilaterally, mild anterior left chest wall tenderness CV: Regular rate and rhythm Abdomen: Soft, normal bowel sounds, nontender, nondistended, no rebound or guarding Back: Normal inspection Extremity: Normal inspection, full range of motion, no calf tenderness or leg edema, left shoulder tenderness with pain with movement. Unable to abduct left shoulder greater than 90 degrees Neuro: Alert O x 3, no facial asymmetry, speech clear, no gross motor sensory deficit Psych: Appropriate behavior Skin: No rash ED Course Vital Signs 08/17/21 19:29 Temperature 97.8 F Pulse Rate 93 H Respiratory 18 Rate Blood Pressure 152/81 [Right] O2 Sat by Pulse 97 Oximetry LEE score - Lee Score Age > 65: (0) No Aspirin use within the Past 7 Days: (0) No 3 or more CAD Risk Factors: (0) No 2 or more Angina events in past 24 hrs: (1) Yes (If pain is considered angina, more likely musculoskeletal) Known CAD with more than 50% Stenosis: (0) No Elevated Cardiac Markers: (0) No ST Deviation Greater than 0.5mm: (0) No LEE Score: 1 ED Medical Decision Making - Lab Data Result diagrams: 08/17/21 19:49 08/17/21 19:49 Lab Results 08/17/21 08/17/21 08/17/21 Range/Units 19:49 19:49 19:49 WBC 6.2 (4.5-11.0) K/mm3 RBC 4.18 (3.65-5.03) M/mm3 Hgb 13.2 (10.1-14.3) gm/dl Hct 39.0 (30.3-42.9) % MCV 93 (79-97) fl MCH 32 (28-32) pg MCHC 34 (30-34) % RDW 13.5 (13.2-15.2) % Plt Count 194 (140-440) K/mm3 Lymph % (Auto) 40.4 H (13.4-35.0) % [place] % (Auto) 8.6 H (0.0-7.3) % Eos % (Auto) 2.7 (0.0-4.3) % Baso % (Auto) 0.7 (0.0-1.8) % Lymph # (Auto) 2.5 (1.2-5.4) K/mm3 [place] # (Auto) 0.5 (0.0-0.8) K/mm3 Eos # (Auto) 0.2 (0.0-0.4) K/mm3 Baso # (Auto) 0.0 (0.0-0.1) K/mm3 Seg Neutrophils % 47.6 (40.0-70.0) % Seg Neutrophils # 2.9 (1.8-7.7) K/mm3 PT 13.6 (12.2-14.9) Sec. INR 0.94 (0.87-1.13) APTT 30.8 (24.2-36.6) Sec. Sodium 143 (137-145) mmol/L Potassium 3.6 (3.6-5.0) mmol/L Chloride 102.9 (98-107) mmol/L Carbon Dioxide 27 (22-30) mmol/L Anion Gap 17 mmol/L BUN 11 (7-17) mg/dL Creatinine 0.8 (0.6-1.2) mg/dL Estimated GFR > 60 ml/min BUN/Creatinine Ratio 14 % Glucose 99 (65-100) mg/dL Calcium 9.9 (8.4-10.2) mg/dL Total Bilirubin 0.30 (0.1-1.2) mg/dL AST 17 (5-40) units/L ALT 22 (7-56) units/L Alkaline Phosphatase 67 (35-129) units/L Troponin T < 0.010 (0.00-0.029) ng/mL Total Protein 7.6 (6.3-8.2) g/dL Albumin 4.7 (3.9-5) g/dL Albumin/Globulin Ratio 1.6 % // Range/Units 23:24 WBC (4.5-11.0) K/mm3 RBC (3.65-5.03) M/mm3 Hgb (10.1-14.3) gm/dl Hct (30.3-42.9) % MCV (79-97) fl MCH (28-32) pg MCHC (30-34) % RDW (13.2-15.2) % Plt Count (140-440) K/mm3 Lymph % (Auto) (13.4-35.0) % [place] % (Auto) (0.0-7.3) % Eos % (Auto) (0.0-4.3) % Baso % (Auto) (0.0-1.8) % Lymph # (Auto) (1.2-5.4) K/mm3 [place] # (Auto) (0.0-0.8) K/mm3 Eos # (Auto) (0.0-0.4) K/mm3 Baso # (Auto) (0.0-0.1) K/mm3 Seg Neutrophils % (40.0-70.0) % Seg Neutrophils # (1.8-7.7) K/mm3 PT (12.2-14.9) Sec. INR (0.87-1.13) APTT (24.2-36.6) Sec. Sodium (137-145) mmol/L Potassium (3.6-5.0) mmol/L Chloride (98-107) mmol/L Carbon Dioxide (22-30) mmol/L Anion Gap mmol/L BUN (7-17) mg/dL Creatinine (0.6-1.2) mg/dL Estimated GFR ml/min BUN/Creatinine Ratio % Glucose (65-100) mg/dL Calcium (8.4-10.2) mg/dL Total Bilirubin (0.1-1.2) mg/dL AST (5-40) units/L ALT (7-56) units/L Alkaline Phosphatase (35-129) units/L Troponin T < 0.010 (0.00-0.029) ng/mL Total Protein (6.3-8.2) g/dL Albumin (3.9-5) g/dL Albumin/Globulin Ratio % - EKG Data -: EKG Interpreted by Sc EKG shows normal: sinus rhythm, ST-T waves (no stemi) Rate: normal (93) - Radiology Data Radiology results: report reviewed Chest x-ray: No acute findings - Medical Decision Making 61-year-old female complaining of atypical sounding left-sided chest pain. Patient has a EKG is normal sinus x2 and similar to previous. She has troponin is negative x2. Patient reports a negative stress test 1 year ago. Patient felt better with ED treatment aspirin and Pepcid. Patient is currently being treated for chronic pain related to left chest and left shoulder area. Patient be treatedtramadol. Outpatient follow-up with medical device sales advised. Chest pain referral form for follow up Critical Care Time: No Critical care attestation.: If time is entered above; I have spent that time in minutes in the direct care of this critically ill patient, excluding procedure time. ED Disposition Clinical Impression: Atypical chest pain Disposition: HOME / SELF CARE / HOMELESS Is pt being admited?: No Does the pt Need Aspirin: No Condition: Stable Instructions: Nonspecific Chest Pain, Adult Additional Instructions: Take the medication as prescribed. Follow-up with your doctor or doctor/clinic provided. Return if symptoms worsen as indicated by your discharge instructions. Information has been faxed to the medical device sales office. Please call cardiology office tomorrow to schedule close follow-up visit. Please return to symptoms worsen as indicated by your discharge instructions. Prescriptions: traMADoL [Ultram 50 MG tab] 50 mg PO Q6HR PRN #15 tablet PRN Reason: Pain Referrals: PRIMARY CAREMD [Primary Care Provider] - 3-5 Days DUNIA CALABRESE MD [Staff Physician] - 2-3 Days (Your information has been faxed to [facility] customer management specialist. Please call tomorrow to schedule a follow-up visit.) Time of Disposition: 00:56
[2021-08-17 20:10] LABS: Basophils % (Auto) 0.7 % (0.0-1.8); Eosinophils # (Auto) 0.2 K/mm3 (0.0-0.4); Eosinophils % (Auto) 2.7 % (0.0-4.3); Hemoglobin 13.2 gm/dl (10.1-14.3); Lymphocytes # (Auto) 2.5 K/mm3 (1.2-5.4); Lymphocytes % (Auto) 40.4 % (13.4-35.0); Mean Corpuscular HGB Conc 34 % (30-34); Mean Corpuscular Volume 93 fl (79-97); Monocytes # (Auto) 0.5 K/mm3 (0.0-0.8); Monocytes % (Auto) 8.6 % (0.0-7.3); Platelet Count 194 K/mm3 (140-440); Red Blood Count 4.18 M/mm3 (3.65-5.03); Red Cell Distribution Width 13.5 % (13.2-15.2)
[2021-08-17 20:20] LABS: Alanine Aminotransferase 22 units/L (7-56); Albumin 4.7 g/dL (3.9-5); BUN/Creatinine Ratio 14; Blood Urea Nitrogen 11 mg/dL (7-17); Calcium 9.9 mg/dL (8.4-10.2); Hemolysis Index 3
[2021-08-17 20:24] LABS: INR 0.94 (0.87-1.13)
[2021-08-17 20:25] LABS: Partial Thromboplastin Time 30.8 Sec. (24.2-36.6)
--- NOTE | 2021-08-17 20:25 | XRay Report ---
CHEST 2 VIEWS INDICATION / CLINICAL INFORMATION: chest pain. FINDINGS: SUPPORT DEVICES: None. HEART / MEDIASTINUM: No significant abnormality. LUNGS / PLEURA: No significant pulmonary or pleural abnormality. No pneumothorax. ADDITIONAL FINDINGS: No significant additional findings. IMPRESSION: 1. No acute findings. Signer Name: Lan Contreras MD Signed: 08/17/2021 8:20 PM Workstation Name: [id number]
[2021-08-18 01:12] VITALS: BP 155/64
--- NOTE | 2021-08-23 14:41 | Electrocardiograph Report ---
[facility] Test Date: 2021-08-17 Test Time: 19:29:11 Pat Name: RYAN KERNS Department: Room: Gender: F Title Search Manager: : 1960 Requested By: MOISES DAVIS Order Number: [id number] Reading MD: Tennille Wise Measurements Intervals [place] Rate: 93 P: 56 [place]: 138 QRS: -9 QRSD: 75 T: 38 QT: 353 QTc: 441 Interpretive Statements Sinus rhythm Low voltage, precordial leads Poor R wave progression No previous ECG available for comparison Electronically Signed On 08-23-2021 14:41:28 EDT by Tennille Wise
--- NOTE | 2021-08-23 14:42 | Electrocardiograph Report ---
[facility] Test Date: 2021-08-17 Test Time: 23:46:09 Pat Name: RYAN KERNS Department: Room: Gender: F Wrapper Stripper: WILI : 1960 Requested By: MOISES DAVIS Order Number: [id number] Reading MD: Tennille Wise Measurements Intervals [place] Rate: 67 P: 56 [place]: 139 QRS: 2 QRSD: 86 T: 23 QT: 400 QTc: 422 Interpretive Statements Sinus rhythm Low voltage, precordial leads Poor R wave progression Compared to ECG 08/17/2021 19:29:11 No significant changes Electronically Signed On 08-23-2021 14:42:06 EDT by Tennille Wise
== END 2021-08-18 01:15 | disposition home or self-care (01) ==
LOC: ED 19:28
DX: R07.89 Other chest pain (principal); K21.9 Gastro-esophageal reflux disease without esophagitis; K59.00 Constipation, unspecified; E78.00 Pure hypercholesterolemia, unspecified; Z98.890 Other specified postprocedural states; Z88.0 Allergy status to penicillin; Z88.6 Allergy status to analgesic agent
CPT/HCPCS: 36415; 71046; 80053; 84484; 85025; 85610; 85730; 93005; 96374; 96375; 99284; J2405